=== PATIENT | male | born 1995 | race Caucasian/White ===

== ENCOUNTER → 2018-02-13 20:33 | Outpatient (CLI) | payer MEDICAID ==
[2018-02-14 00:25] LABS: BASOPHILS 0.7 % (0-2); EOSINOPHILS 3.1 % (0-7); HEMOGLOBIN 13.4 g/dL (13.5-17.5); IMMATURE GRANULOCYTES 0.2 % (0-5); MCH 28.2 pg (26.0-34.0); MCHC 31.9 g/dL (31.0-37.0); MCV 88.4 fL (80.0-100.0); MEAN PLATELET VOLUME 10.1 fL (7.4-10.4); MONOCYTES 10.1 % (2-11); NEUTROPHILS 62.9 % (40-80); PLATELET COUNT 405 10x3/uL (130-400); RBC 4.75 10x6/uL (4.20-6.10); RDW 13.7 % (11.5-14.5); WBC 9.5 10x3/uL (4.8-10.8)
== END | disposition home or self-care (01) ==
LOC: D.LABREF 20:33
PROVIDERS: Family Medicine
DX: I31.9 Disease of pericardium, unspecified (principal)

== ENCOUNTER → 2018-02-20 17:36 | Outpatient (CLI) | payer MEDICAID ==
[2018-02-20 19:30] LABS: BASOPHILS 0.7 % (0-2); EOSINOPHILS 4.3 % (0-7); HEMATOCRIT 43.3 % (42.0-54.0); HEMOGLOBIN 14.1 g/dL (13.5-17.5); IMMATURE GRANULOCYTES 0.2 % (0-5); LYMPHOCYTES 28.4 % (15-50); MCH 28.1 pg (26.0-34.0); MCHC 32.6 g/dL (31.0-37.0); MCV 86.4 fL (80.0-100.0); MEAN PLATELET VOLUME 10.3 fL (7.4-10.4); MONOCYTES 9.7 % (2-11); NEUTROPHILS 56.7 % (40-80); PLATELET COUNT 324 10x3/uL (130-400); RBC 5.01 10x6/uL (4.20-6.10); RDW 13.9 % (11.5-14.5); WBC 8.1 10x3/uL (4.8-10.8)
== END | disposition home or self-care (01) ==
LOC: D.LABREF 17:36
PROVIDERS: Colon & Rectal Surgery
DX: I31.9 Disease of pericardium, unspecified (principal)

== ENCOUNTER → 2018-03-16 15:24 | Outpatient (CLI) | payer MEDICAID ==
[2018-03-16 16:36] LABS: BASOPHILS 0.9 % (0-2); EOSINOPHILS 4.2 % (0-7); HEMATOCRIT 45.8 % (42.0-54.0); HEMOGLOBIN 15.4 g/dL (13.5-17.5); IMMATURE GRANULOCYTES 0.4 % (0-5); LYMPHOCYTES 24.5 % (15-50); MCH 28.8 pg (26.0-34.0); MCHC 33.6 g/dL (31.0-37.0); MCV 85.8 fL (80.0-100.0); MEAN PLATELET VOLUME 11.1 fL (7.4-10.4); MONOCYTES 9.9 % (2-11); NEUTROPHILS 60.1 % (40-80); PLATELET COUNT 266 10x3/uL (130-400); RBC 5.34 10x6/uL (4.20-6.10); RDW 14.1 % (11.5-14.5); WBC 8.6 10x3/uL (4.8-10.8)
== END | disposition home or self-care (01) ==
LOC: D.LABREF 15:24
PROVIDERS: Colon & Rectal Surgery
DX: I38 Endocarditis, valve unspecified (principal)

== ENCOUNTER → 2018-03-23 16:19 | Outpatient (CLI) | payer MEDICAID ==
[2018-03-23 19:00] LABS: BASOPHILS 1.2 % (0-2); EOSINOPHILS 3.5 % (0-7); HEMATOCRIT 45.4 % (42.0-54.0); HEMOGLOBIN 15.7 g/dL (13.5-17.5); IMMATURE GRANULOCYTES 0.3 % (0-5); LYMPHOCYTES 24.2 % (15-50); MCH 29.1 pg (26.0-34.0); MCHC 34.6 g/dL (31.0-37.0); MCV 84.2 fL (80.0-100.0); MONOCYTES 11.5 % (2-11); NEUTROPHILS 59.3 % (40-80); PLATELET COUNT 291 10x3/uL (130-400); RBC 5.39 10x6/uL (4.20-6.10); RDW 13.6 % (11.5-14.5); WBC 8.9 10x3/uL (4.8-10.8)
== END | disposition home or self-care (01) ==
LOC: D.LABREF 16:19
PROVIDERS: Colon & Rectal Surgery
DX: I31.9 Disease of pericardium, unspecified (principal)

== ENCOUNTER → 2018-04-13 18:35 | Outpatient (CLI) | payer MEDICAID ==
[2018-04-13 20:30] LABS: EOSINOPHILS 4.3 % (0-7); HEMATOCRIT 46.3 % (42.0-54.0); HEMOGLOBIN 16.1 g/dL (13.5-17.5); IMMATURE GRANULOCYTES 0.1 % (0-5); MCH 29.1 pg (26.0-34.0); MCHC 34.8 g/dL (31.0-37.0); MCV 83.6 fL (80.0-100.0); MEAN PLATELET VOLUME 10.7 fL (7.4-10.4); MONOCYTES 10.7 % (2-11); NEUTROPHILS 57.9 % (40-80); PLATELET COUNT 310 10x3/uL (130-400); RBC 5.54 10x6/uL (4.20-6.10); RDW 13.4 % (11.5-14.5); WBC 7.9 10x3/uL (4.8-10.8)
== END | disposition home or self-care (01) ==
LOC: D.LABREF 18:35
PROVIDERS: Colon & Rectal Surgery
DX: I31.9 Disease of pericardium, unspecified (principal)

== ENCOUNTER → 2018-04-26 16:05 | Outpatient (CLI) | payer MEDICAID ==
[2018-04-26 16:24] LABS: BASOPHILS 1.1 % (0-2); EOSINOPHILS 3.5 % (0-7); HEMATOCRIT 45.8 % (42.0-54.0); IMMATURE GRANULOCYTES 0.2 % (0-5); LYMPHOCYTES 28.9 % (15-50); MCH 28.9 pg (26.0-34.0); MCHC 34.9 g/dL (31.0-37.0); MCV 82.7 fL (80.0-100.0); MEAN PLATELET VOLUME 10.1 fL (7.4-10.4); MONOCYTES 9.2 % (2-11); NEUTROPHILS 57.1 % (40-80); PLATELET COUNT 299 10x3/uL (130-400); RBC 5.54 10x6/uL (4.20-6.10); RDW 13.3 % (11.5-14.5); WBC 8.3 10x3/uL (4.8-10.8)
== END | disposition home or self-care (01) ==
LOC: D.LABREF 16:05
PROVIDERS: Colon & Rectal Surgery
DX: I31.9 Disease of pericardium, unspecified (principal)